=== PATIENT | male | born 2000 | race African-American/Black ===

== ENCOUNTER 2024-01-13 23:26 | Emergency (ER) | payer MEDICAID, SELFPAY ==
--- NOTE | ~2024-01-13 | XR_ITS ---
Portable chest x-ray Comparison: None Clinical History: Covid Findings: Lungs are clear, without focal consolidation or pleural effusion. Cardiomediastinal silho uette is unremarkable. Bones and soft tissues are unremarkable. Impression: Normal chest. Reviewed, dictated and finalized at location M. Impression: Normal chest.
[2024-01-13 23:31] VITALS: BP 149/78; PULSE 100; RESP 20; TEMP 37.4; O2SAT 96
[2024-01-14 02:00] LABS: Basophils Percent Auto 0.3 % (0.2-1.2); Hematocrit 40.8 % (42.0-52.0); Hemoglobin 14.1 g/dL (14.0-18.0); Immature Granulocyte Absolute 0.01 K/mm3 (0.00-0.031); Immature Granulocyte Percent A 0.1 % (0-0.5); Lymphocytes Absolute Auto 0.93 K/mm3 (0.9-3.2); Lymphocytes Percent Auto 12.2 % (18.3-44.2); Mean Corpuscular HGB Conc 34.6 g/dl (32-36); Mean Corpuscular Hemoglobin 29.3 pg (26-34); Mean Corpuscular Volume 84.6 fl (80-100); Mean Platelet Volume 10.3 fl (7.4-10.4); Monocytes Absolute Auto 0.9 K/mm3 (0.1-0.6); Monocytes Percent Auto 12.3 % (2.6-8.5); Neutrophils Absolute Auto 5.7 K/mm3 (1.3-6.7); Neutrophils Percent Auto 75.1 % (45.5-73.1); Platelet Count Result 238 k/mm3 (150-375); Red Blood Count 4.82 M/mm3 (4.6-6.20); Red Cell Distribution Width 13.7 % (11.5-14.5); White Blood Count 7.6 K/mm3 (4.5-10.0)
[2024-01-14 02:11] LABS: Alanine Aminotransferase 30 U/L (6-50); Albumin Level 4.6 g/dL (3.5-5.1); Alkaline Phosphatase 61 U/L (38-126); Anion Gap 10 mmol/L (4-12); Aspartate Amino Transferase 26 U/L (17-59); Bilirubin,Total 0.9 mg/dL (0.2-1.3); Blood Urea Nitrogen 9 mg/dL (9-20); Carbon Dioxide 30 mmol/L (22-30); Chloride 98 mmol/L (98-107); Estimated CRCL calculation 125 ml/min; Estimated Glomerular Filt Rate > 60; Glucose 94 mg/dL (65-110); Lipase 37 U/L (23-300); Potassium 3.3 mmol/L (3.4-5.0); Sodium 138 mmol/L (137-145)
[2024-01-14 02:39] VITALS: O2SAT 98
[2024-01-14 02:39] LABS: Influenza A QL RT-PCR Negative (Negative); Influenza B QL RT-PCR Negative (Negative); RSV RNA, RT-PCR Negative (Negative); SARS-CoV-2 RNA PCR Positive (Negative)
--- NOTE | 2024-01-14 03:17 | ED.ABDPAIN ---
HPI - Abdominal Pain General Chief Complaint: Abdominal Pain Stated Complaint: HANLEY, abd pain, feeling hot. Time Seen by Provider: 01/14/24 02:39 History of Present Illness HPI narrative: 23-year-old male presents to the emergency department for evaluation of cough congestion and fatigue. Patient states symptoms started yesterday and have continued throughout the day today. Related Data Allergies Allergy/AdvReac Type Severity Reaction Status Date / Time No Known Allergies Allergy Verified 01/13/24 23:34 Review of Systems Review of Systems: All systems reviewed & are unremarkable except as noted in HPI and below Exam Narrative: APPEARANCE: Well appearing, no pain, no distress, well-nourished. HEAD: normocephalic, atraumatic. EYES: PERRLA/EOMI, conjunctivae clear. NOSE: Normal no drainage EARS:TMS clear with good light reflex. THROAT: Pharynx clear, no exudate. NECK: Supple. No adenopathy, no masses. RESPIRATORY: Airway patent, respirations nonlabored. Clear to auscultation bilaterally, no rales, rhonchi, wheezing. CARDIOVASCULAR: Regular rate and rhythm without murmurs rubs or gallops. ABDOMINAL: Soft, nontender, nondistended, normal bowel sounds MUSCULOSKELETAL: Moves all extremities. Strength/ROM intact, No edema, No calf tenderness. NEURO: Alert. Cranial nerves II through XII intact. Grossly intact SKIN: Warm, dry. Normal Color Course Vital Signs Vital signs: Vital Signs Temperature 99.3 F 01/13/24 23:31 Pulse Rate 100 01/13/24 23:31 Respiratory Rate 20 01/13/24 23:31 Blood Pressure 149/78 H 01/13/24 23:31 Pulse Oximetry 96 01/13/24 23:31 Oxygen Delivery Room Air 01/13/24 23:31 Temperature 99.3 F 01/13/24 23:31 Pulse Rate 80 01/14/24 03:40 Respiratory Rate 16 01/14/24 03:40 Blood Pressure 138/74 01/14/24 03:40 Pulse Oximetry 100 01/14/24 03:40 Oxygen Delivery Room Air 01/14/24 02:39 MDM - Abdominal Pain MDM Narrative Medical decision making narrative: 23-year-old male presents emergency department for evaluation for body ache fatigue and cough and congestion. Patient is afebrile with no leukocytosis and a stable hemoglobin 14.1. No acute abnormalities on the patient's CMP. Patient was positive for COVID. Differential Diagnosis Differential diagnosis: Likely abdominal pain and constipation Lab Data Attestation: I reviewed the patient's lab results. 01/14/24 01:53 01/14/24 01:53 Labs: Lab Results 01/14/24 Range/Units 01:53 WBC 7.6 (4.5-10.0) K/mm3 RBC 4.82 (4.6-6.20) M/mm3 Hgb 14.1 (14.0-18.0) g/dL Hct 40.8 L (42.0-52.0) % MCV 84.6 (80-100) fl MCH 29.3 (26-34) pg MCHC 34.6 (32-36) g/dl RDW 13.7 (11.5-14.5) % Plt Count 238 (150-375) k/mm3 MPV 10.3 (7.4-10.4) fl Immature Gran % (Auto) 0.1 (0-0.5) % Neut % (Auto) 75.1 H (45.5-73.1) % Lymph % (Auto) 12.2 L (18.3-44.2) % [place] % (Auto) 12.3 H (2.6-8.5) % Eos % (Auto) 0.0 (0-4.4) % Baso % (Auto) 0.3 (0.2-1.2) % Lymph # (Auto) 0.93 (0.9-3.2) K/mm3 [place] # (Auto) 0.9 H (0.1-0.6) K/mm3 Eos # (Auto) 0.0 (0-0.3) K/mm3 Baso # (Auto) 0.0 (0.0-0.1) K/mm3 Abs Immat Gran (auto) 0.01 (0.00-0.031) K/mm3 Absolute Neuts (auto) 5.7 (1.3-6.7) K/mm3 Absolute Nucleated RBC 0.000 (0.0-0.012) K/mm3 Nucleated RBC % 0.0 (0.0-0.2) % Sodium 138 (137-145) mmol/L Potassium 3.3 L (3.4-5.0) mmol/L Chloride 98 (98-107) mmol/L Carbon Dioxide 30 (22-30) mmol/L Anion Gap 10 (4-12) mmol/L BUN 9 (9-20) mg/dL Creatinine 0.90 (0.7-1.3) mg/dL Estim Creat Clear Calc 125 ml/min Estimated GFR > 60 (59 - ) Glucose 94 (65-110) mg/dL Calcium 9.0 (8.4-10.2) mg/dL Total Bilirubin 0.9 (0.2-1.3) mg/dL AST 26 (17-59) U/L ALT 30 (6-50) U/L Alkaline Phosphatase 61 (38-126) U/L Total Protein 8.0 (6.3-8.2) g/dL Albumin 4.6 (3.5-5.1) g/dL Lipase 37 (23-300) U/L Influenza A (RT-PCR) Negative
[2024-01-14] MEDS: POTASSIUM CHLORIDE 20 MEQ PACKET (FOR LIQUID) 40 MEQ PO (03:23)
[2024-01-14 03:40] VITALS: BP 138/74; PULSE 80; RESP 16; O2SAT 100
== END 2024-01-14 03:40 | disposition home or self-care (01) ==
PROVIDERS: Emergency Provider Emergency Medicine
DX: U07.1 COVID-19 (principal)
CPT/HCPCS: 36415; 71045; 80053; 83690; 85025; 87637; 99283; A9270

== ENCOUNTER 2024-09-19 11:13 | Emergency (ER) | payer OTHER, SELFPAY ==
--- NOTE | 2024-09-19 12:19 | ED_ITS ---
HPI - Wound/Laceration General Chief Complaint: Wound/Laceration Stated Complaint: left 5th finger Lac-cut with knife Time Seen by Provider: 09/19/24 12:08 History of Present Illness HPI narrative: 23-year-old male presents emergency department for a laceration to the distal aspect of his left 5th digit that occurred 20 minutes prior to arrival. Patient states he was cutting an onion when he accidentally cut the tip of his finger. Bleeding controlled. Last Tdap unknown. No other injuries. Related Data Allergies Allergy/AdvReac Type Severity Reaction Status Date / Time No Known Allergies Allergy Verified 09/19/24 11:14 Review of Systems Review of Systems: All systems reviewed & are unremarkable except as noted in HPI and below Exam Narrative: GENERAL: Well-appearing, well-nourished, and in no acute distress. HEAD: Normocephalic, atraumatic. ENT: Nares clear, no rhinorrhea or epistaxis. Mucous membranes moist. NECK: Supple. CHEST: Clear to auscultation. No respiratory distress. HEART: Regular rate and rhythm. No murmur heard. Normal peripheral pulses. EXTREMITIES: Normal range of motion. No edema. SKIN: 1 cm well-approximated superficial laceration to the palmar aspect of the distal tip of the distal phalanx of the left 5th digit, no deep structures or foreign bodies visualized, bleeding controlled, full active and passive range of motion of the digit. Cap refill less than 2. Sensation intact. NEURO: No focal deficits. Alert and oriented x3 Course Vital Signs Vital signs: Vital Signs Temperature 98.9 F 09/19/24 12:31 Pulse Rate 97 09/19/24 12:31 Respiratory Rate 16 09/19/24 12:31 Blood Pressure 135/69 09/19/24 12:31 Pulse Oximetry 99 09/19/24 12:31 Temperature 98.9 F 09/19/24 12:31 Pulse Rate 97 09/19/24 12:31 Respiratory Rate 16 09/19/24 12:31 Blood Pressure 135/69 09/19/24 12:31 Pulse Oximetry 99 09/19/24 12:31 MDM - Wound/Laceration MDM Narrative Medical decision making narrative: 23-year-old male with no past medical history presents to the emergency department for a laceration to the left 5th digit that occurred 20 minutes prior to arrival. Vitals are stable. Exam is significant for a small superficial laceration to the distal aspect of the 5th digit. No deep structures or foreign bodies are visualized. Patient is neuro vascularly intact. Laceration irrigated extensively with normal saline and closed with skin glue without complications, overlying dressing and splint applied given location. Patient was given wound care instructions, strict ED return precautions and advised to follow-up with PCP. He is agreeable with the plan verbalized understanding. Discharged in stable condition. Discharge Plan Discharge Clinical Impression: Laceration Patient Disposition: Home, Self-Care Condition: Stable Instructions: Antibiotic Form, Laceration (ED), Skin Adhesive Care (ED) Additional Instructions: You were evaluated in the emergency department for laceration to her finger. The laceration was cleaned with normal saline and closed with skin glue. Please wear the dressing for the next couple of days to allow the skin glue to it here while in till your body creates a scab. Follow-up with primary care. Return to the emergency department if you develop surrounding redness, drainage, fever or other concerning symptoms. Your tetanus was updated here today. Patient Language: Citizen Of [place] Prescriptions: No Action albuterol sulfate 90 mcg/actuation HFA aerosol inhaler 1 inh inhalation QID PRN (Reason: shortness of breath or wheezing) Qty: 6.7 0RF benzonatate 100 mg capsule 100 mg PO Q6H PRN (Reason: cough) Qty: 20 0RF ondansetron 4 mg tablet,disintegrating 4 mg PO Q8H PRN (Reason: nausea and vomiting) Qty: 14 0RF Follow-up/Referrals: PHYSICIAN NOT ON STAFF,NONSTAFF [Primary Care Provider] -
--- OUTSIDE RECORDS SUMMARY | 2024-09-19 12:27 | XMS_ITS | Clinical Summary ---
Author Organization [facility] Care Team Providers Care Plugger Man Name Role Phone Unavailable Primary Care Provider Unavailabl e Social History Tobacco Use Types Packs/Day Years Used Date Smoking Tobacco: Never Assessed Sex and Gender Information Value Date Recorded Sex Assigned at Not on file Legal Sex Male 1:02 PM CDT Gender Identity Not on file Sexual Orientation Not on file Plan of Treatment Health Maintenance Due Date Last Done Comments Hepatitis C Virus (HCV) Screening 2002 Human Papillomavirus (HPV) Immunization (2 - Male 2-dose series) 12/14/2014 06/15/2014 Meningococcal B Immunization (1 of 2 - Standard) 2018 Influenza Immunization (#1) 2024 03/28/2016, 0 07/26/2004 SARS-COV-2 Immunization ( - season) 2024 Respiratory Syncytial Virus (RSV) Immunization (Adult) (1 - 1-dose 75+ series) 2077 Hepatitis B Immunization Completed 004, 05/12/2003, 05/12/2003, Additional history exists Polio (IPV) Immunization Discontinued 004, 05/12/2003, 02/03/2003 Measles Mumps Rubella (MMR) Immunization Discontinued 03/25/2004 Pneumococcal Immunization Combined Aged Out 07/26/2004, 08/11/2003, 05/12/2003, Additional history exists No longer eligible based on patient's age to complete this topic Hepatitis A Immunization Discontinued 10/06/2005 DTaP/Tdap/Td Immunization Discontinued 2013, 07/26/2004, 08/11/2003, Additional history exists TdaP Immunization Completed 12/25/2013 Meningococcal Immunization (ACWY) Completed 03/11/2019, 12/25/2013 Rotavirus Immunization Aged Out No lo nger eligible based on patient's age to complete this topic
--- OUTSIDE RECORDS SUMMARY | 2024-09-19 12:27 | XMS_ITS | Clinical Summary ---
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 Gender Identity Not on file Sexual Orientation Not on file Last Filed Vital Signs Vital Sign Reading Time Taken Comments Blood Pressure 121/65 02/03/2021 4:32 PM CDT Pulse 82 02/03/2021 4:32 PM CDT Temperature 38.1 C (100.5 F) 02/03/2021 4:32 PM CDT Respiratory Rate 18 02/03/2021 4:32 PM CDT Oxygen Saturation 95% 02/03/2021 4:32 PM CDT Inhaled Oxygen Concentration - - Weight 70.5 kg (155 lb 6.8 oz) 02/03/2021 4:32 P M CDT Height 177.8 cm (5' 10 ) 02/03/2021 4:32 PM CDT Body Mass Index 22.3 02/03/2021 4:32 PM CDT Plan of Treatment Not on file Insurance [facility] Care Teams Speed Operator Relationship Specialty Start Date End Date Nirmal Barbour MD PCP - General 12/13/19
--- OUTSIDE RECORDS SUMMARY | 2024-09-19 12:27 | XMS_ITS | Referral Summary ---
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 Care Teams Hides Inspector Relationship Specialty Start Date End Date Nirmal Barbour MD PCP - General 12/13/19
--- OUTSIDE RECORDS SUMMARY | 2024-09-19 12:27 | XMS_ITS | Clinical Summary ---
Author Organization [facility] Address [address] [place] [id number] Care Team Providers Care Inshore Undersea Warfare Officer Name Role Phone Nirmal Barbour MD Primary Care Provider [phone] Allergies No known active allergies Medications No known medications Social History Tobacco Use Types Packs/Day Years Used Date Smoking Tobacco: Never Smokeless Tobacco: Never Tobacco Cessation:Counseling Given: Not Answered Alcohol Use Standard Drinks/Week Comments Never 0 (1 standard drink = 0.6 oz pur e alcohol) Sex and Gender Information Value Date Recorded Sex Assigned at Not on file Legal Sex Male 7:27 PM CDT Gender Identity Not on file Sexual Orientation Not on file Last Filed Vital Signs Vital Sign Reading Time Taken Comments Blood Pressure 160/64 10/20/2022 4:03 AM CDT Pulse 50 10/20/2022 4:03 AM CDT Temperature 36.7 C (98 F) 10/20/2022 1:47 AM CDT Respiratory Rate 18 10/20/2022 1:47 AM CDT Oxygen Saturation 98% 10/20/2022 4:03 AM CDT Inhaled Oxygen Concentration - - Weight 77.7 kg (171 lb 4.8 oz) 10/20/2022 1:47 A M CDT Height 182.9 cm (6') 10/20/2022 1:47 AM CDT Body Mass Index 23.23 10/20/2022 1:47 AM CDT Plan of Treatment Health Maintenance Due Date Last Done Comments Annual Physical 2005 HPV Vaccines (2 - Male 2-dose series) 12/14/2014 06/15/2014 Meningococcal B Vaccine (1 of 2 - Standard) 2018 Hepatitis C 2020 DTaP, Tdap and Td Vaccines (6 - Td or Tdap) 12/26/2023 12/25/2013, 07/26/2004, 08/11/2003, Additional history exists COVID-19 Vaccine ( season) 2024 Influenza Adult (#1) 2024 03/28/2016, 07/26/19 05 Hepatitis B Vaccines Completed 08/11/2003, 05/12/2003, 05/12/2003, Additional history exists Pneumococcal Vaccine: Pediatrics (0 to 5 Years) and At-Risk Patients (6 to 64 Years) Aged Out 07/26/2004, 08/11/2003, 05/12/2003, Additional history exists No longer eligible based on patient's age to complete this topic Meningococcal Vaccine Completed 03/11/2019, 014 RSV Immunizations Under 20 Months Aged Out No longer eligible based on patient's age to complete this topic Insurance Care Teams Inshore Undersea Warfare Officer Relationship Specialty Start Date End Date Nirmal Barbour MD [facility] [address] [place] [address] PCP - General PEDIATRICS 10/20/22
[2024-09-19 12:31] VITALS: BP 135/69; PULSE 97; RESP 16; TEMP 37.2; O2SAT 99
--- NOTE | 2024-09-19 12:44 | PC.NURSE ---
patient provided with TDAP vaccine vaccine information sheet and consents to vaccine at this time
[2024-09-19] MEDS: TETANUS,DIPHTHERIA,AC PERTUSSIS ADULT (0.5 ML) BOOSTRIX IM (12:45)
--- OUTSIDE RECORDS SUMMARY | 2024-09-19 13:07 | XMS_ITS | Clinical Summary ---
Author Organization [facility] Care Team Providers Care Order Takers Supervisor Name Role Phone Unavailable Primary Care Provider [...]
--- OUTSIDE RECORDS SUMMARY | 2024-09-19 13:07 | XMS_ITS | Referral Summary ---
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
--- OUTSIDE RECORDS SUMMARY | 2024-09-19 13:07 | XMS_ITS | Clinical Summary ---
Author Organization [facility] Address [address] [place] [id number] Care Team Providers Care Plan Nurse Name Role Phone Nirmal Barbour MD Primary Care Provider Allergies No known active allergies Medications No [...] to complete this topic Insurance Care Teams Plan Nurse Relationship Specialty Start Date End Date Nirmal Barbour MD [facility] [address] [place] [address] PCP - General PEDIATRICS 10/20/22
--- OUTSIDE RECORDS SUMMARY | 2024-09-19 13:07 | XMS_ITS | Clinical Summary ---
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
== END 2024-09-19 12:41 | disposition home or self-care (01) ==
LOC: ANHED 12:25
PROVIDERS: Emergency Provider Physician Assistant
DX: S61.217A Laceration without foreign body of left little finger without damage to nail, initial encounter (principal); Z23 Encounter for immunization; W26.0XXA Contact with knife, initial encounter; Y93.G1 Activity, food preparation and clean up
CPT/HCPCS: 12001; 90471; 90715; 99282